=== PATIENT | female | born 1990 | race Caucasian/White ===

== ENCOUNTER → 2017-12-10 | Outpatient (CLI) | payer OTHER ==
--- NOTE | 2017-12-10 14:31 | RAD ---
Obstetrical ultrasound, 12/10/2017: HISTORY: Uterine size/date discrepancy, high risk There is a single intrauterine fetus present in a transverse orientation. The biparietal diameter measures 4.1 cm compatible with a gestational age of 18-19 weeks. This corresponds well with the other measurements yielding a sonographic EDC of 05/09/2018. Normal activity and heart motion were seen. A four-chamber heart is evident with a heart rate of 160 bpm. Fluid is identified in the bladder and stomach. The visualized portions of the spine and kidneys are unremarkable. A three-vessel umbilical cord is evident with a normal cord insertion site. The placenta lies posteriorly with no evidence of a placenta previa. A normal amount of amniotic fluid is present with the CHARISSE measured at 10.5. The cervical length is 3.4 cm. The maternal ovaries were not visualized. IMPRESSION: Single viable intrauterine fetus of 18-19 weeks gestational age as described above. Electronically signed by: Ata Calvo MD (12/10/2017 2:27 PM) [facility]
== END | disposition home or self-care (01) ==
LOC: US 09:40
PROVIDERS: ATTEND Obstetrics & Gynecology
DX: O26.842 Uterine size-date discrepancy, second trimester (principal); Z3A.19 19 weeks gestation of pregnancy
CPT/HCPCS: 76805

== ENCOUNTER 2018-11-25 17:27 | Emergency (ER) | payer MEDICAID, OTHER ==
[~2018-11-25] VITALS: Ht 165.1 cm; Wt 72.6 kg
[2018-11-25] MEDS ORDERED: TRAM50TA PO (18:28)
[2018-11-25] MEDS ORDERED: ORPH-16 PO (18:28)
[2018-11-25] MEDS ORDERED: DICL50TA4 PO (18:28)
--- NOTE | 2018-11-25 18:29 | PHYS DOC ---
Adult General Chief Complaint Chief Complaint: BACK PAIN OR INJURY HPI HPI Is a 28-year-old female who presents with couple week history of upper back pain. She states the pain is worsened when she turns her neck. She denies any recent injury and is not sure as to the cause. She does indicate that she has a history of scoliosis and wonders if that may be part of the problem. She denies any radicular symptoms. She also denies any bowel or bladder loss of control. She rates pain as moderate and states that she has no alleviating factors.[] Review of Systems Review of Systems Constitutional: Denies fever or chills [] Respiratory: Denies cough or shortness of breath [] Cardiovascular: No additional information not addressed in HPI [] Musculoskeletal: Complains of left-sided upper back pain [] Neurologic: Denies headache, focal weakness or sensory changes [] Allergies Allergies Allergies Coded Allergies Type Severity Reaction Last Updated Verified No Known Drug Allergies 11/25/18 No Physical Exam Physical Exam Constitutional: Well developed, well nourished, no acute distress, non-toxic appearance. [] Neck: Normal range of motion, no tenderness, supple, no stridor. [] Cardiovascular:Heart rate regular rhythm, no murmur [] Lungs & Thorax: Bilateral breath sounds clear to auscultation [] Back: There is tenderness to palpation and palpable spasm noted in the left levator scapula and trapezius musculature. [] Neurologic: Alert and oriented X 3, normal motor function, normal sensory function, no focal deficits noted. [] Current Patient Data Lab Results Laboratory Tests Test 11/25/18 17:54 POC Urine HCG, Qualitative hcg negative (Negative) EKG EKG [] Radiology/Procedures Radiology/Procedures [] Course & Med Decision Making Course & Med Decision Making Pertinent Labs and Imaging studies reviewed. (See chart for details) [] Dragon Disclaimer Dragon Disclaimer This electronic medical record was generated, in whole or in part, using a voice recognition dictation system. Departure Departure: Impression: Primary Impression: Upper back pain on left side Disposition: 01 HOME, SELF-CARE Condition: STABLE Referrals: FELISA JACKSON (PCP) Patient Instructions: Back Pain, Adult Scripts Diclofenac Sodium (DICLOFENAC SODIUM) 50 Mg Tablet.dr 1 TAB PO BID PRN for PAIN, #20 TAB Prov: TOM HER Jr. DO 11/25/18 Orphenadrine Citrate (ORPHENADRINE CITRATE) 100 Mg Tablet.er 1 TAB PO BID PRN for MUSCLE SPASMS, #14 TAB Prov: TOM HER Jr. DO 11/25/18 Tramadol Hcl (TRAMADOL HCL) 50 Mg Tablet 50 MG PO PRN Q6HRS PRN for PAIN, #12 TAB Prov: TOM HER Jr. DO 11/25/18 TOM HER Jr. DO Nov 25, 2018 18:28
[2018-11-25 18:30] VITALS: BP 108/59
== END 2018-11-25 18:35 | disposition home or self-care (01) ==
LOC: ER 17:27
DX: M54.6 Pain in thoracic spine (principal)
CPT/HCPCS: 81025; 99283

== ENCOUNTER 2019-01-12 10:46 | Emergency (ER) | payer MEDICAID ==
[~2019-01-12] VITALS: Ht 165.1 cm; Wt 72.6 kg
[~2019-01-12 10:46] MED LIST: DICL50TA4 PO; ORPH-16 PO; TRAM50TA PO
[2019-01-12 10:54] VITALS: BP 117/73
[2019-01-12] MEDS ORDERED: IBUP800T19 PO (11:41)
--- NOTE | 2019-01-12 13:00 | PHYS DOC ---
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 Allergies Allergies Allergies Coded Allergies Type Severity Reaction Last Updated Verified No Known Drug Allergies 11/25/18 No Physical Exam Physical Exam Constitutional: Well developed, well nourished, no acute distress, non-toxic appearance. [] HENT: Normocephalic, atraumatic, bilateral external ears normal, oropharynx moist, no oral exudates, nose normal. [] Eyes: PERRLA, EOMI, conjunctiva normal, no discharge. [] Abdomen: Bowel sounds normal, soft, no tenderness, no masses, no pulsatile masses. [] Skin: Warm, dry, no erythema, no rash. [] Back: nontender[] Extremities: mild ttp noted anterior thigh, no swelling palpated.] Neurologic: Alert and oriented X 3, normal motor function, normal sensory function, no focal deficits noted. [] distal pulses intact Psychologic: Affect normal, judgement normal, mood normal. [] Current Patient Data Vital Signs Vital Signs Date Time Temp Pulse Resp B/P (MAP) Pulse Ox O2 Delivery O2 Flow Rate FiO2 01/12/19 10:54 82 16 97 Room Air EKG EKG [] Radiology/Procedures Radiology/Procedures [] Impressions: None Blood Pressure Systolic * 117 mm Hg (100-140) Blood Pressure Diastolic * 73 mm Hg (60-100) Blood Pressure Mean * 88 mm Hg Blood Pressure Location * Right Arm Blood Pressure Source * Automatic Cuff Pulse Rate * 82 beats per minute (60-90) Pulse Assessment Method * Monitor Respiratory Rate * 16 breaths per minute (12-24) Oxygen Delivery Method * Room Air Bedside Pulse Oximetry * 97 % Treatment Prior to Arrival * No Complaint of Pain * Yes Pain Scale Type * Numeric Course & Med Decision Making Course & Med Decision Making Pertinent Labs and Imaging studies reviewed. (See chart for details) []likely quad muscle strain the symptomatic area is inferoir to the abdomen or inguinal region the distal neuro exam is intact. reassurance ice rest advil as needed gradual return to activity Dragon Disclaimer Dragon Disclaimer This electronic medical record was generated, in whole or in part, using a voice recognition dictation system. Departure Departure: Impression: Primary Impression: Leg strain Disposition: HOME, SELF-CARE Condition: STABLE Patient Instructions: Muscle Strain, [id number] Scripts Ibuprofen (IBUPROFEN) 800 Mg Tablet 1 TAB PO TID PRN for PAIN, #15 TAB 0 Refills Prov: KLEVER MELGAR MD 01/12/19 KLEVER MELGAR MD Jan 12, 2019 13:00
== END 2019-01-12 11:40 | disposition home or self-care (01) ==
LOC: ER 10:46
DX: S76.912A Strain of unspecified muscles, fascia and tendons at thigh level, left thigh, initial encounter (principal); X50.0XXA Overexertion from strenuous movement or load, initial encounter; Y93.89 Activity, other specified; Y92.89 Other specified places as the place of occurrence of the external cause; Y99.8 Other external cause status
CPT/HCPCS: 99282

== ENCOUNTER 2019-09-23 13:24 | Emergency (ER) | payer MEDICAID ==
[~2019-09-23] VITALS: Ht 162.6 cm; Wt 82.0 kg
[~2019-09-23 13:24] MED LIST changes: +IBUP800T19 PO
[2019-09-23 13:40] VITALS: BP 117/73
--- NOTE | 2019-09-23 14:35 | PHYS DOC ---
Past History Past Medical History: No Pertinent History Past Surgical History: No Surgical History Alcohol Use: None Drug Use: None General Adult EDM: Chief Complaint: PAIN ON URINATION HPI: HPI: Patient is a 29-year-old female presenting to the ED with a chief complaint of vaginal discharge and pain with urination. Patient states that the symptoms have been present for the last 2 days. Patient denies new sexual partners. Patient denies fever, chills, nausea, vomiting, chest pain, shortness of breath, diarrhea. Patient denies . Review of Systems: Review of Systems: Constitutional: Denies fever or chills Eyes: Denies change in visual acuity HENT: Denies nasal congestion or sore throat Respiratory: Denies cough or shortness of breath Cardiovascular: Denies chest pain or edema GI: Denies abdominal pain, nausea, vomiting, bloody stools or diarrhea : Complains of vaginal discharge and dysuria Musculoskeletal: Denies back pain or joint pain Neurologic: Denies headache, focal weakness or sensory changes Heart Score: Risk Factors: Risk Factors: DM, Current or recent (<one month) smoker, HTN, HLP, family history of CAD, obesity. Risk Scores: Score 0 - 3: 2.5% MACE over next 6 weeks - Discharge Home Score 4 - 6: 20.3% MACE over next 6 weeks - Admit for Clinical Observation Score 7 - 10: 72.7% MACE over next 6 weeks - Early Invasive Strategies Allergies: Allergies: Allergies Coded Allergies Type Severity Reaction Last Updated Verified No Known Drug Allergies 11/25/18 No Physical Exam: PE: Constitutional: Well developed, well nourished, no acute distress, non-toxic appearance. [] HENT: Normocephalic, atraumatic Eyes: EOMI Neck: Normal range of motion, Supple Respiratory: No respiratory distress Abdomen: Bowel sounds normal, soft, no tenderness : Moderate amount of white discharge from the vagina. Extremities: No tenderness, ROM intact Neurologic: Alert and oriented X 3 Current Patient Data: Labs: Microbiology 09/23/19 Wet Prep - Final, Complete EKG: EKG: [] Radiology/Procedures: Radiology/Procedures: [] Course & Med Decision Making: Course & Med Decision Making Pertinent Labs reviewed. (See chart for details) Performed pelvic exam. Patient has moderate white discharge. Ordered UA and urine . Urine is negative. ] Dragon Disclaimer: Dragon Disclaimer: This electronic medical record was generated, in whole or in part, using a voice recognition dictation system. Departure Departure: Impression: Primary Impression: UTI (urinary tract infection) Additional Impression: Yeast vaginitis Disposition: HOME/RESIDENCE PRIOR TO ADM Condition: STABLE Referrals: FELISA JACKSON (PCP) Patient Instructions: Urinary Tract Infection, Vaginitis, [id number] Additional Instructions: Discussed results and plan of care with patient. Patient is instructed to follow up with PCP in one to 2 days. Appropriate discharge instructions given to patient to return to the ED or to seek immediate medical evaluation. Patient is instructed to return to the ED if symptoms worsen or if any concerns. Scripts Sulfamethoxazole/Trimethoprim (BACTRIM DS TABLET) 1 Each Tablet 1 TAB PO BID for UTI for 5 Days, #10 TAB 0 Refills Prov: DESTINEE ARDON DO 09/23/19 Justification of Admission: Justification of Admission: Justification of Admission Dx: DESTINEE Vasquez DO Sep 23, 2019 14:35
[2019-09-23 14:46] LABS: BACTERIA,URINE 0 /HPF (0-FEW); BILIRUBIN,URINE NEG (NEG); CLARITY,URINE CLOUDY; COLOR,URINE YELLOW; GLUCOSE,URINE NEG (NEG); NITRITE,URINE NEG (NEG); SQUAMOUS EPITHELIAL CELL,UR MOD /LPF; UROBILINOGEN,URINE 0.2 mg/dL (0.2 mg/dL); WBC,URINE 20-40 /HPF (0-4)
[2019-09-23 14:48] LABS: U PREG PATIENT NEGATIVE (NEG)
[2019-09-23] MEDS ORDERED: SULF1TAB24 PO (15:10)
[2019-09-23] MEDS ORDERED: FLUCONAZOLE 100 MG TABLET. PO ONE (15:15)
[2019-09-23] MEDS ORDERED: SMZ/TMP 800/160MG TABLET. PO ONE (15:15)
[2019-09-24 19:07] LABS: CHLAMYDIA PROBE Negative (Negative)
== END 2019-09-23 14:50 | disposition home or self-care (01) ==
LOC: ER 13:24
DX: N39.0 Urinary tract infection, site not specified (principal); B37.3 Candidiasis of vulva and vagina; R30.9 Painful micturition, unspecified
CPT/HCPCS: 36415; 81001; 81025; 87086; 87491; 87591; 99284; Q0111

== ENCOUNTER 2019-11-26 17:41 | Emergency (ER) | payer MEDICAID ==
[~2019-11-26] VITALS: Ht 162.6 cm; Wt 84.3 kg
[~2019-11-26 17:41] MED LIST changes: +SULF1TAB24 PO
[2019-11-26] MEDS ORDERED: METOCLOPRAMIDE HCL 10 MG/2 ML VIAL. IVP ONE (18:00)
[2019-11-26] MEDS ORDERED: IV NORMAL SALINE 1,000ML 1,000 ML IV ONE (18:00)
--- NOTE | 2019-11-26 18:06 | PHYS DOC ---
Past History Past Medical History: No Pertinent History Past Surgical History: No Surgical History Alcohol Use: None Drug Use: None General Adult EDM: Chief Complaint: ABDOMINAL PAIN IN HPI: HPI: Patient is a 29 years old female who presented to the ER today for evaluation of nausea, vomiting off and on for two weeks. Patient said she is . She denied any abdominal pain, no pelvic pain, no vaginal bleeding. Patient has been 6 times, has 5 children. Her last menstrual period is sometime in the middle of last August. 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 Patient denied any fever, no cough, no shortness of air, no chest pain. Review of Systems: Review of Systems: Constitutional: Denies fever or chills Eyes: Denies change in visual acuity HENT: Denies nasal congestion or sore throat Respiratory: Denies cough or shortness of breath Cardiovascular: Denies chest pain or edema GI: Denies abdominal pain, Positive for nausea, vomiting, no bloody stools or diarrhea : Denies dysuria Musculoskeletal: Denies back pain or joint pain Integument: Denies rash Neurologic: Denies headache, focal weakness or sensory changes Endocrine: Denies polyuria or polydipsia Lymphatic: Denies swollen glands Psychiatric: Denies depression or anxiety Heart Score: Risk Factors: Risk Factors: DM, Current or recent (<one month) smoker, HTN, HLP, family history of CAD, obesity. Risk Scores: Score 0 - 3: 2.5% MACE over next 6 weeks - Discharge Home Score 4 - 6: 20.3% MACE over next 6 weeks - Admit for Clinical Observation Score 7 - 10: 72.7% MACE over next 6 weeks - Early Invasive Strategies Allergies: Allergies: Allergies Coded Allergies Type Severity Reaction Last Updated Verified No Known Drug Allergies 11/25/18 No Physical Exam: PE: Constitutional: Well developed, well nourished, no acute distress, non-toxic appearance. [] HENT: Normocephalic, atraumatic, bilateral external ears normal, oropharynx moist, no oral exudates, nose normal. [] Eyes: PERRLA, EOMI, conjunctiva normal, no discharge. [] Neck: Normal range of motion, no tenderness, supple, no stridor. [] Cardiovascular:Heart rate regular rhythm, no murmur [] Lungs & Thorax: Bilateral breath sounds clear to auscultation [] Abdomen: Bowel sounds normal, soft, no tenderness, no masses, no pulsatile masses. [] Skin: Warm, dry, no erythema, no rash. [] Back: No tenderness, no CVA tenderness. [] Extremities: No tenderness, no cyanosis, no clubbing, ROM intact, no edema. [] Neurologic: Alert and oriented X 3, normal motor function, normal sensory function, no focal deficits noted. [] Psychologic: Affect normal, judgement normal, mood normal. [] Current Patient Data: Labs: Laboratory Tests Test 11/26/19 17:52 11/26/19 18:03 Urine Collection Type Unknown Urine Color Yellow Urine Clarity Hazy Urine pH 6.0 Urine Specific [place] 1.025 Urine Protein Trace Urine Glucose (UA) Neg mg/dL Urine Ketones (Stick) Trace mg/dL Urine Blood Neg Urine Nitrite Neg Urine Bilirubin Neg Urine Urobilinogen Dipstick 1.0 mg/dL Urine Leukocyte Esterase Neg Urine RBC 0 /HPF Urine WBC Rare /HPF Urine Squamous Epithelial Cells Few /LPF Urine Bacteria 0 /HPF Urine Mucus Marked /LPF White Blood Count 8.5 x10^3/uL Red Blood Count 4.32 x10^6/uL Hemoglobin 11.6 g/dL Hematocrit 35.5 % Mean Corpuscular Volume 82 fL Mean Corpuscular Hemoglobin 27 pg Mean Corpuscular Hemoglobin Concent 33 g/dL Red Cell Distribution Width 14.4 % Platelet Count 324 x10^3/uL Neutrophils (%) (Auto) 70 % Lymphocytes (%) (Auto) 20 % Monocytes (%) (Auto) 9 % Eosinophils (%) (Auto) 1 % Basophils (%) (Auto) 1 % Neutrophils # (Auto) 6.0 x10^3uL Lymphocytes # (Auto) 1.7 x10^3/uL Monocytes # (Auto) 0.8 x10^3/uL Eosinophils # (Auto) 0.1 x10^3/uL Basophils # (Auto) 0.0 x10^3/uL Maternal Serum HCG Beta Subunit 03082 mIU/mL Sodium Level 137 mmol/L Potassium Level 3.9 mmol/L Chloride Level 104 mmol/L Carbon Dioxide Level 24 mmol/L Anion Gap 9 Blood Urea Nitrogen 13 mg/dL Creatinine 0.7 mg/dL Estimated GFR (Cockcroft-Gault) 98.9 BUN/Creatinine Ratio 19 Glucose Level 96 mg/dL Calcium Level 8.9 mg/dL Magnesium Level 2.2 mg/dL Total Bilirubin 0.2 mg/dL Aspartate Amino Transf (AST/SGOT) 20 U/L Alanine Aminotransferase (ALT/SGPT) 32 U/L Alkaline Phosphatase 87 U/L Total Protein 7.6 g/dL Albumin 3.1 g/dL Albumin/Globulin Ratio 0.7 Lipase 67 U/L Current Medications Medications (Trade) Dose Ordered Sig/Chloé Route PRN Reason Start Time Stop Time Status Last Admin Dose Admin Sodium Chloride 1,000 ml @ 1,000 mls/hr 1X ONCE IV 11/26/19 18:00 11/26/19 18:59 DC 11/26/19 18:10 Metoclopramide HCl (Reglan Vial) 10 mg 1X ONCE IVP 11/26/19 18:00 11/26/19 18:05 DC 11/26/19 18:10 Vital Signs: Vital Signs Date Time Temp Pulse Resp B/P (MAP) Pulse Ox O2 Delivery O2 Flow Rate FiO2 11/26/19 17:48 98.4 98 16 116/72 (87) 98 Room Air EKG: EKG: [] Radiology/Procedures: Radiology/Procedures: [] Course & Med Decision Making: Course & Med Decision Making Pertinent Labs and Imaging studies reviewed. (See chart for details) Patient is a 29-year-old female who is , presented to ER for evaluation of nausea vomiting. Patient was given nausea medication in the ER, she felt much better. Patient denies any pelvic pain, no abdominal pain, no vaginal bleeding or discharge. Patient will be discharged home, she will need to follow-up with OB doctor for outpatient OB care. Dragon Disclaimer: Dragon Disclaimer: This electronic medical record was generated, in whole or in part, using a voice recognition dictation system. Departure Departure: Impression: Primary Impression: Hyperemesis gravidarum Disposition: HOME/RESIDENCE PRIOR TO ADM Condition: IMPROVED Referrals: FELISA JACKSON (PCP) ALBARO LO MD please call this PHERESIS SPECIALIST PHYSICIAN FOR FOLLOW UP NEXT WEEK Patient Instructions: Diet - Hyperemesis Gravidarum, Hyperemesis Gravidarum Additional Instructions: Thank you for visiting our Emergency Department. We appreciate you trusting us with your care. If any additional problems come up don't hesitate to return to visit us. Please follow up with your primary care provider so they can plan additional care if needed and know about the problem that you had. If symptoms worsen come back to the Emergency Department. Any concerning symptoms that start such as chest pain, shortness of air, weakness or numbness on one side of the body, running high fevers or any other concerning symptoms return to the ER. Scripts Metoclopramide Hcl (REGLAN) 10 Mg Tablet 1 TAB PO QID PRN for NAUSEA for 30 Days, #120 TAB 0 Refills before food and bedtime Prov: KARLOS LOVETT DO 11/26/19 Justification of Admission: Justification of Admission: Justification of Admission Dx: No KARLOS LOVETT DO Nov 26, 2019 18:06
[2019-11-26 18:28] LABS: BASO % 1 % (0-3); EOS # 0.1 x10^3/uL (0.0-0.7); EOS % 1 % (0-3); HEMATOCRIT 35.5 % (36.0-47.0); HEMOGLOBIN 11.6 g/dL (12.0-15.5); LYMPH # 1.7 x10^3/uL (1.0-4.8); LYMPH % 20 % (24-48); MEAN CORPUSCULAR HEMOGLOBIN 27 pg (25-35); MEAN CORPUSCULAR HGB CONC 33 g/dL (31-37); MEAN CORPUSCULAR VOLUME 82 fL (79-100); MONO # 0.8 x10^3/uL (0.0-1.1); MONO % 9 % (0-9); NEUT % 70 % (31-73); PLATELET COUNT 324 x10^3/uL (140-400); RED BLOOD COUNT 4.32 x10^6/uL (3.50-5.40); RED CELL DISTRIBUTION WIDTH 14.4 % (11.5-14.5); WHITE BLOOD COUNT 8.5 x10^3/uL (4.0-11.0)
[2019-11-26 18:44] LABS: CALCIUM 8.9 mg/dL (8.5-10.1); CREATININE 0.7 mg/dL (0.6-1.0); GFR 98.9; POTASSIUM 3.9 mmol/L (3.5-5.1)
[2019-11-26 18:46] LABS: CLARITY,URINE HAZY; COLOR,URINE YELLOW
[2019-11-26 18:47] LABS: BILIRUBIN,URINE NEG (NEG); GLUCOSE,URINE NEG (NEG); NITRITE,URINE NEG (NEG); RBC,URINE 0 /HPF (0-2)
[2019-11-26 18:48] LABS: BACTERIA,URINE 0 /HPF (0-FEW); SQUAMOUS EPITHELIAL CELL,UR FEW /LPF; WBC,URINE RARE /HPF (0-4)
[2019-11-26 18:49] LABS: ALBUMIN 3.1 g/dL (3.4-5.0); ALBUMIN/GLOBULIN RATIO 0.7 (1.0-1.7); MAGNESIUM 2.2 mg/dL (1.8-2.4); TOTAL BILIRUBIN 0.2 mg/dL (0.2-1.0); TOTAL PROTEIN 7.6 g/dL (6.4-8.2)
[2019-11-26 19:00] VITALS: BP 106/64
[2019-11-26] MEDS ORDERED: METO10TA81 PO (19:20)
== END 2019-11-26 19:20 | disposition home or self-care (01) ==
LOC: ER 17:41
DX: O21.0 Mild hyperemesis gravidarum (principal); Z3A.01 Less than 8 weeks gestation of pregnancy
CPT/HCPCS: 36415; 80053; 81001; 83690; 83735; 84702; 85025; 96361; 96374; 99283; J2765; J7030